=== PATIENT | female | born 1995 | race Caucasian/White ===

== ENCOUNTER 2018-11-03 21:19 | Emergency (ER) | payer BC ==
[~2018-11-03] VITALS: Ht 157.5 cm; Wt 75.1 kg
[2018-11-03 21:27] VITALS: Ht 157.5 cm; Wt 75.1 kg
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
[2018-11-04] MEDS ORDERED: HYDROCODONE/APAP (5/325) TAB PO ONE (01:30)
[2018-11-04] MEDS ORDERED: IBUP800T48 PO (02:39)
[2018-11-04] MEDS ORDERED: CYCL10TA7 PO (02:40)
[2018-11-04 02:45] VITALS: BP 130/84; PULSE 61; RESP 18
== END 2018-11-04 02:46 | disposition home or self-care (01) ==
LOC: FTE 21:19
DX: S06.0X0A Concussion without loss of consciousness, initial encounter (principal); S20.219A Contusion of unspecified front wall of thorax, initial encounter; T14.8XXA Other injury of unspecified body region, initial encounter; V49.59XA Passenger injured in collision with other motor vehicles in traffic accident, initial encounter
CPT/HCPCS: 70450; 71046; 72125; 81025; Z7610